=== PATIENT | female | born 1950 | race Caucasian/White ===

== ENCOUNTER 2025-01-21 09:29 | Outpatient (CLI) | payer MEDICARE, SELFPAY ==
--- NOTE | ~2025-01-21 | CT_ITS ---
EXAMINATION: CT lumbar spine wo con DATE: 01/21/2025 09:58 INDICATION: History of L1 compression fracture. Details of this are not available. TECHNIQUE: Computed tomography (CT) of the lumbar spine was performed without intravenous contrast. Automated exposure control and iterative reconstruction technique were employed. The dose-length product was 402.65 mGy-cm. COMPARISON: No prior imaging studies of lumbar spine for comparison. FINDINGS: Diffusely osteopenic bones. Mild compression fracture of the inferior endplate of L1 vertebra. Moderate degenerative disc disease at L1-2 level with facet arthropathy causing moderate bilateral foraminal narrowing. Similar finding at L2-3, L3-4 levels are noted. At L4-5 level, degenerative disc disease and facet arthropathy are causing moderate bilateral foraminal narrowing. At L5-S1 level, degenerative disc disease and minimal anterolisthesis. Mild foraminal narrowing due to degenerative changes. Calcific changes of abdominal aorta including origin of left renal artery. IMPRESSION: 1. Osteopenia vertebrae. Please correlate with DEXA densitometry. 2. Mild compression fracture of the inferior endplate of L1 vertebra of undetermined age. 3. Moderate multilevel degenerative changes of lumbar discs with facet arthropathy. 4. Calcific changes of abdominal aorta including probably significant calcific changes at the origin of left renal artery. Reviewed, dictated and finalized at location [employer] IMPRESSION: 1. Osteopenia vertebrae. Please correlate with DEXA densitometry. 2. Mild compression fracture of the inferior endplate of L1 vertebra of undeter mined age. 3. Moderate multilevel degenerative changes of lumbar discs with facet arthropa thy. 4. Calcific changes of abdominal aorta including probably significant calcific changes at the origin of left renal artery.
== END 2025-01-21 09:30 | disposition home or self-care (01) ==
LOC: MICIMG 09:30
PROVIDERS: PCP Family Medicine; Visit Provider Family Medicine
DX: S32.010A Wedge compression fracture of first lumbar vertebra, initial encounter for closed fracture (principal); M85.88 Other specified disorders of bone density and structure, other site; M51.369 Other intervertebral disc degeneration, lumbar region without mention of lumbar back pain or lower extremity pain; M47.896 Other spondylosis, lumbar region; I70.0 Atherosclerosis of aorta
CPT/HCPCS: 72131